=== PATIENT | female | born 1990 | race Caucasian/White ===

== ENCOUNTER 2018-09-08 21:00 | Emergency (ER) | payer OTHER ==
[~2018-09-08] VITALS: Ht 165.1 cm; Wt 59.0 kg
[~2018-09-08 21:00] MED LIST: CITA10TA8 PO; FOLI1TAB21 PO; HYDR-3468 PO; LEVE100020 PO; LEVE500T54 PO; LORA-447 PO; PHEN100C PO; PREN-4 PO; PREN1TAB59 PO
[2018-09-08 21:08] VITALS: BP 154/67
--- NOTE | 2018-09-08 21:36 | ER.PDOC ---
General Chief Complaint: Abdomen Pain Stated Complaint: R SIDE PAIN,ABD PAIN Time seen by MD: 21:29 Source: patient Exam Limitations: no limitations History of Present Illness Initial Comments Pt states she was having sex this morning and after finishing, shortly after, she felt lower abdominal pain, that then went to back and felt nauseous, no bleeding, no urinary symptoms Timing/Duration: other (12 hours) Severity/Quality: moderate, cramping, sharpness Radiation: LLQ, periumbilical Associated Symptoms: back pain, nausea/vomiting Exacerbated by: movements Relieved By: nothing Allergies: Coded Allergies: No Known Allergies (Unverified , 09/17/13) Home Meds Reported Medications Alprazolam (XANAX XR) 1 Mg Tab.er.24h, 1 TAB PO DAILY, #30 TAB 09/08/18 Levetiracetam (LEVETIRACETAM) 500 Mg Tab.er.24h, 500 MG PO DAILY24 09/08/18 Discontinued Reported Medications Levetiracetam (KEPPRA) 1,000 Mg Tablet, 1 TAB PO BID, #60 TAB 5 Refills 10/07/16 Vits W-Ca,Fe,Fa(<1MG) ( VITAMINS) 1 Each Tablet, 1 TAB PO DAILY , #30 TAB 11 Refills 09/07/14 Discontinued Scripts Hydrocodone Bit/Acetaminophen (NORCO 5-325 TABLET) 5-325 Ta1 Ea Tablet, 1 EA PO Q6HR PRN for PAIN MODERATE for 30 Days, #30 TABLET 0 Refills Prov:VIRI WILSON MD 01/21/17 Vital Signs First Vital Signs Date Time Temp Pulse Resp B/P (MAP) Pulse Ox O2 Delivery O2 Flow Rate FiO2 09/08/18 21:08 98.1 98.1 Last Vital Signs Date Time Temp Pulse Resp B/P (MAP) Pulse Ox O2 Delivery O2 Flow Rate FiO2 09/08/18 21:08 98.1 98.1 Past Medical History Surgical History: tubal LMP (females 10-50): 3 weeks Social History Drug Use: none Gastrointestinal: see HPI Genitourinary: see HPI All Other Systems: Reviewed and Negative Physical Exam General Appearance: No Apparent Distress, WD/WN HEENT: PERRL/EOMI, Normal ENT Inspection, TMs Normal, Pharynx Normal Neck: Non-Tender, Full Range of Motion, Supple, Normal Inspection Respiratory: chest non-tender, lungs clear, normal breath sounds, no respiratory distress, no accessory muscle use Cardiovascular: Normal Peripheral Pulses, Regular Rate, Rhythm, No Edema, No Gallop, No JVD, No Murmur Gastrointestinal: Normal Bowel Sounds, No Organomegaly, No Pulsatile Mass, Soft , Tenderness (periumbilical area, left lower quadrant), Rovsing's sign Back: Normal Inspection, No CVA Tenderness, No Vertebral Tenderness Extremities: Normal Range of Motion, Non-Tender, Normal Inspection, No Pedal Edema, No Calf Tenderness, Normal Capillary Refill, Pelvis Stable 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, No Motor/Sensory Deficits, Alert, Normal Mood/Affect, Oriented x 3 Skin: Normal Color, Warm/Dry Lymphatic: No Adenopathy Results/Orders Results/Orders Vital Signs Date Time Temp Pulse Resp B/P (MAP) Pulse Ox O2 Delivery O2 Flow Rate FiO2 09/08/18 21:08 98.1 98.1 Course Duration or Total Time Spent w: 15 Vitals & review Data Vital Sign - Last 24 Hours 09/08/18 21:08 Temp 98.1 98.1 Departure Time of Disposition: 22:45 Disposition: 01 HOME, SELF-CARE Impression: Primary Impression: Ovarian cyst Condition: Stable Patient Instructions: Abdominal Pain Referrals: LIZZ HERNANDEZ MANAGER MULTICULTURAL (PCP) PRIMARY CARE PROVIDER Duration or Time Spent with Pa: GUERO MARTELL MD Sep 08, 2018 21:36
[2018-09-08] MEDS ORDERED: TORADOL IV STA (21:38)
[2018-09-08] MEDS ORDERED: LEVE500T22 PO (21:42)
[2018-09-08] MEDS ORDERED: ALPR1TAB PO (21:42)
[2018-09-08 21:45] LABS: BILIRUBIN,URINE NEGATIVE (NEGATIVE); UROBILINOGEN,URINE NORMAL (NEGATIVE)
[2018-09-08] MEDS ORDERED: NS 1000ML 1,000 ML ONE (21:53)
[2018-09-08] MEDS ORDERED: TORADOL ONE (21:53)
[2018-09-08 21:54] LABS: BASOPHIL % 0.3 % (0.0-0.2); EOSINOPHIL # 0.1 10^3/uL (0.0-0.2); HEMOGLOBIN 15.1 g/dL (12.0-15.0); LYMPHOCYTES # 2.9 10^3/uL (1.0-4.8); LYMPHOCYTES % 35.9 % (24.0-44.0); MEAN CELL HGB 32.8 pg (26-34); MEAN CELL HGB CONCENTRATION 35.4 g/dL (33-37); MEAN CORP VOLUME 92.8 fL (78-100); MEAN PLATELET VOLUME 9.4 fL (7.8-11.0); MONOCYTES # 0.9 10^3/uL (0.3-0.8); MONOCYTES % 11.2 % (5.0-12.0); NEUTROPHIL # 4.1 10^3/uL (1.8-7.7); NEUTROPHILS % 51.5 % (41.0-85.0); RED CELL DISTRIBUTION WIDTH 13.1 % (11.5-14.5); WHITE BLOOD CELL 7.9 10^3/uL (4.5-11.0)
[2018-09-08 22:00] VITALS: BP 128/40
[2018-09-08] MEDS ORDERED: NS 1000ML 1,000 ML IV ONE (22:00)
[2018-09-08 22:09] LABS: APPEARANCE,URINE CLOUDY (CLEAR); UA COLOR YELLOW (YELLOW)
[2018-09-08 22:15] LABS: CARBON DIOXIDE 26.3 mmol/L (20.0-32)
--- NOTE | 2018-09-08 22:36 | DIREP ---
PROCEDURE:CT ABDOMEN/PELVIS W/ CONTRAST COMPARISON:None. INDICATIONS:LLQ pain TECHNIQUE:Axial images were obtained through the abdomen and pelvis with the administration of IV contrast. Oral contrast was not administered. The examination is supplemented with sagittal and coronal reconstructions. FINDINGS: LOWER CHEST: The lung bases appear clear of focal consolidation. No evidence of pleural effusion. LIVER: A focal lesion is not detected. BILIARY: No visible dilatation or calcification. PANCREAS: No lesion, inflammatory changes, fluid collection, ductal dilatation, or atrophy. SPLEEN: No enlargement. No focal lesion. KIDNEYS: No mass. No calcification. No obstruction. ADRENALS: No mass or enlargement. AORTA/VASCULAR: No aneurysm or dissection. RETROPERITONEUM: No mass or adenopathy. BOWEL/MESENTERY: Limitations due to unopacified bowel. The appendix is visualized and has a normal appearance. No small bowel dilatation or bowel wall thickening. No mesenteric inflammatory changes. There is no free air. ABDOMINAL WALL: No mass or hernia. PELVIS: Fluid attenuated structure in the left adnexal with central ring enhancement raises question of corpus luteal cyst. Small a moderate amount of free fluid in posterior cul-de-sac. Uterus is generous in size. No adenopathy. No visible focal bladder wall thickening or intraluminal calculus. BONES: No bony lesion or acute fracture. OTHER: Negative. CONCLUSION: 1. Suggestion of left ovarian corpus luteal cyst with pelvic free fluid. Ultrasound correlation could be helpful. Dictated by: Larry Rocha M.D. On 09/08/2018 at 10:27 PM
[2018-09-08 23:00] VITALS: BP 142/62
[2018-09-08] MEDS ORDERED: TYLENOL #3 PO ONE (23:00)
[2018-09-08 23:20] VITALS: BP 142/62
== END 2018-09-08 23:08 | disposition home or self-care (01) ==
LOC: ER 21:00
DX: N83.202 Unspecified ovarian cyst, left side (principal); Z79.899 Other long term (current) drug therapy
CPT/HCPCS: 36415; 74177; 80053; 81000; 81025; 82150; 83690; 85025; 85610; 85730; 96361; 96374; 99284; J1885; J7030; Q9967

== ENCOUNTER 2019-08-08 17:12 | Emergency (ER) | payer OTHER ==
[~2019-08-08] VITALS: Ht 165.1 cm; Wt 58.5 kg
[~2019-08-08 17:12] MED LIST changes: +ALPR1TAB PO; +LEVE500T22 PO
[2019-08-08 18:12] VITALS: BP 116/77
[2019-08-08 18:15] VITALS: BP 116/77
[2019-08-08 19:17] VITALS: BP 116/77
--- NOTE | 2019-08-08 19:20 | ER.PDOC ---
General Chief Complaint: Neck/Upper back Pain Stated Complaint: NECK AND BACK PAIN Time seen by MD: 19:00 Source: patient Exam Limitations: no limitations History of Present Illness Initial Comments Pt states lifting object at home pulled left neck area x 3 days ago, pt states the left neck pain is worsening everyday, pt refused all IM injections today Timing/Duration: getting worse Severity/Quality: moderate Method of Injury: lifting Associated Symptoms: denies symptoms Allergies: Coded Allergies: No Known Allergies (Unverified , 09/17/13) Home Meds Reported Medications Alprazolam (XANAX XR) 1 Mg Tab.er.24h, 1 TAB PO DAILY, #30 TAB 09/08/18 Levetiracetam (LEVETIRACETAM) 500 Mg Tab.er.24h, 500 MG PO DAILY24 09/08/18 Past Medical History Medical History: other Surgical History: tubal LMP (females 10-50): tubal Social History Smoking: cigarettes Alcohol Use: none Drug Use: none Review of Systems Constitutional: no symptoms reported EENTM: no symptoms reported Respiratory: no symptoms reported Cardiovascular: no symptoms reported Gastrointestinal: no symptoms reported Genitourinary: no symptoms reported Musculoskeletal: see HPI Skin: no symptoms reported Psychiatric/Neurological: no symptoms reported All Other Systems: Reviewed and Negative Physical Exam General Appearance: Mild Distress HEENT: Normal ENT Inspection, TMs Normal, Pharynx Normal Neck: Painful Range of Motion, Tenderness, Tender Lateral Cardiovascular/Respiratory: Regular Rate, Rhythm, No M/R/G, Normal Peripheral Pulses, No JVD, Normal Breath Sounds, No Respiratory Distress Gastrointestinal: Normal Bowel Sounds, No Organomegaly, No Pulsatile Mass, Non Tender Back: Normal Inspection, No CVA Tenderness Extremities: No Evidence of Injury, Normal Range of Motion, Non-Tender, No Pedal Edema Neuro/Psych: Alert, epic analyst nml/symmetrical, mood/effect nml, No Motor/Sensory Deficits Skin: Warm/Dry Results/Orders Results/Orders Vital Signs Date Time Temp Pulse Resp B/P (MAP) Pulse Ox O2 Delivery O2 Flow Rate FiO2 08/08/19 19:17 98.2 108 16 08/08/19 18:15 98.2 108 16 116/77 (90) 98 Room Air 08/08/19 18:12 98.2 108 16 98 Departure Time of Disposition: 19:30 Disposition: 01 HOME, SELF-CARE Impression: Primary Impression: Neck sprain Condition: Stable Patient Instructions: Soft Tissue Injury of the Neck, [id number] Referrals: LIZZ VIDAL SENIOR RESTAURANT MANAGER (PCP) PRIMARY CARE PROVIDER Additional Instructions: Return if symptoms worsen. See PCP as needed. Flexeril 10 mg one by mouth every8 hours as needed for neck pain x 5 days 15 # , Prednisone 20 mg one by mouth once a day x 5 days, Lodine 400 mg one by mouth twice a day x 5 day 10# no refills called to [facility] Duration or Time Spent with Pa: 15 minutes Return to Work/School Can a patient return to work?: No Can a patient return to school: No Problem Qualifiers Primary Impression: Neck sprain Encounter type: initial encounter Qualified Codes: S13.9XXA - Sprain of joints and ligaments of unspecified parts of neck, initial encounter CATA CASTAÑEDA NP Aug 08, 2019 19:20
--- NOTE | 2019-08-08 19:52 | ER.PDOC ---
General Chief Complaint: Neck/Upper back Pain Stated Complaint: NECK AND BACK PAIN Time seen by MD: 18:50 Source: patient, family Exam Limitations: no limitations History of Present Illness Initial Comments pulled a muscle in the left neck causing upper left back pain x 4 days, pain is getting worse Allergies: Coded Allergies: No Known Allergies (Unverified , 09/17/13) Home Meds Reported Medications Alprazolam (XANAX XR) 1 Mg Tab.er.24h, 1 TAB PO DAILY, #30 TAB 09/08/18 Levetiracetam (LEVETIRACETAM) 500 Mg Tab.er.24h, 500 MG PO DAILY24 09/08/18 Past Medical History Surgical History: tubal Social History Drug Use: none Results/Orders Results/Orders Orders - CATA CASTAÑEDA NP Influenza A&B (08/08/19 18:20) Strep Screen (08/08/19 18:20) Vital Signs Date Time Temp Pulse Resp B/P (MAP) Pulse Ox O2 Delivery O2 Flow Rate FiO2 08/08/19 18:15 98.2 108 16 116/77 (90) 98 Room Air 08/08/19 18:12 98.2 108 16 98 Departure Referrals: LIZZ VIDAL NP (PCP) PRIMARY CARE PROVIDER CATA CASTAÑEDA NP Aug 08, 2019 19:52
== END 2019-08-08 19:26 | disposition home or self-care (01) ==
LOC: ER 17:12
DX: S13.9XXA Sprain of joints and ligaments of unspecified parts of neck, initial encounter (principal); Z88.8 Allergy status to other drugs, medicaments and biological substances; X58.XXXA Exposure to other specified factors, initial encounter; Y93.89 Activity, other specified; Y92.89 Other specified places as the place of occurrence of the external cause; Y99.8 Other external cause status
CPT/HCPCS: 99281

== ENCOUNTER 2019-10-12 14:39 | Emergency (ER) | payer OTHER ==
[~2019-10-12] VITALS: Ht 165.1 cm; Wt 59.9 kg
--- NOTE | 2019-10-12 15:36 | NUR ---
STATUS OUT TO GET PATIENT. PATIENT NO IN WAITING ROOM.
--- NOTE | 2019-10-12 15:50 | NUR ---
STATUS PATIENT NO IN WAITING ROOM.
--- NOTE | 2019-10-12 15:53 | NUR ---
STATUS ATTEMPTED TO CALL PATIENT ON CELL NUMBER LISTED. NO ANSWER.
== END 2019-10-12 15:36 ==
LOC: ER 14:39
DX: N93.9 Abnormal uterine and vaginal bleeding, unspecified (principal); Z53.21 Procedure and treatment not carried out due to patient leaving prior to being seen by health care provider

== ENCOUNTER 2020-06-27 16:31 | Emergency (ER) | payer OTHER ==
[~2020-06-27] VITALS: Ht 165.1 cm; Wt 60.0 kg
--- NOTE | 2020-06-27 16:40 | ER.PDOC ---
General Chief Complaint: Requesting Medical Care Stated Complaint: RIGHT SHOULDER PAIN Time seen by MD: 16:38 Source: patient Exam Limitations: no limitations History of Present Illness Initial Comments Patient reports that this morning she started having pain and tightness to her right trap region. She was doing housework yesterday with a lot of lifting o verhead. This morning the pain started. There was no injury. She denies any weakness or numbness. No change in yard hand strength. Pain is worse with turning her head. No fever. 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 She reports that she has had this happen several times in the past and it usually improves with heating pad. The pain did not improve with heat and it was worse than normal so she came in. Allergies: Coded Allergies: No Known Allergies (Unverified , 09/17/13) Home Meds Reported Medications Alprazolam (XANAX XR) 1 Mg Tab.er.24h, 1 TAB PO DAILY, #30 TAB 09/08/18 Levetiracetam (LEVETIRACETAM) 500 Mg Tab.er.24h, 500 MG PO DAILY24 09/08/18 Past Medical History Medical History: other Surgical History: tubal Social History Drug Use: Xanax Reviewed Nursing Reviewed: Vital Signs, Abn. Noted, Nursing Assessment Review of Systems Constitutional: no symptoms reported EENTM: no symptoms reported Respiratory: no symptoms reported Cardiovascular: no symptoms reported Gastrointestinal: no symptoms reported Musculoskeletal: see HPI Skin: no symptoms reported Psychiatric/Neurological: no symptoms reported All Other Systems: Reviewed and Negative Physical Exam General Appearance: alert (uncomfortable) Upper Extremity: nml inspection, non-tender, nml ROM, joints nml Neuro/Psych: sensation nml, motor nml (yard hand strength 5/5 B/L, sensation intact and symettric) Neck/Back: nml inspection (tenderness and spasm to the right trap region. No midline/ bony tenderness of cervical or thoracic vertebrae. ) Results/Orders Results/Orders Vital Signs Date Time Temp Pulse Resp B/P (MAP) Pulse Ox O2 Delivery O2 Flow Rate FiO2 06/27/20 16:58 98.1 113 20 126/89 (101) 98 Room Air 06/27/20 16:57 98.1 113 20 06/27/20 16:41 98.1 113 20 98 Progress Progress patient has spasm of right trap. She declines IM meds. She is completely neurologically intact. She will be placed on muscle relaxer, anti inflammatory and steroid. She should follow up with PCP in 2-3 days or return with any new or worsening sx ER DEPART Departure Time of Disposition: 17:07 Disposition: 01 HOME, SELF-CARE Impression: Primary Impression: Trapezius muscle spasm Condition: Stable Referrals: LIZZ VIDAL FLOWER MAKER (PCP) PRIMARY CARE PROVIDER Comments flexeril 10mg q 8hrs, naprosyn 500mg BID and prednisone 60mg daily Duration or Time Spent with Pa: 20 SHARRON PERLA MD Jun 27, 2020 16:40
[2020-06-27 16:41] VITALS: BP 126/89
[2020-06-27 16:57] VITALS: BP 126/89
[2020-06-27 16:58] VITALS: BP 126/89
[2020-06-27] MEDS ORDERED: NAPROXEN PO STA (16:58)
[2020-06-27] MEDS ORDERED: PREDNISONE PO STA (16:58)
[2020-06-27] MEDS ORDERED: FLEXERIL PO STA (16:58)
[2020-06-27] MEDS ORDERED: NAPROXEN PO ONE (17:08)
[2020-06-27] MEDS ORDERED: PREDNISONE ONE (17:08)
== END 2020-06-27 17:17 | disposition home or self-care (01) ==
LOC: ER 16:31
DX: M62.830 Muscle spasm of back (principal); Z79.899 Other long term (current) drug therapy
CPT/HCPCS: 99283; J7512